=== PATIENT | female | born 1980 | race Hispanic/Latino ===

== ENCOUNTER 2017-04-14 08:50 | Outpatient (CLI) | payer MEDICAID ==
--- NOTE | 2017-04-14 14:29 | ULT ---
PELVIC ULTRASOUND: (TRANSABDOMINAL, TRANSVAGINAL, TOLEDO SCALE, COLOR FLOW, AND SPECTRAL DOPPLER) Date: 04/14/17 HISTORY: Pelvic pain. FINDINGS: The uterus measures 6.0 x 3.5 x 4.2 cm without focal mass or endometrial fluid. Endometrium measures 3.0 mm in thickness. The right ovary measures 2.1 x 1.8 x 1.1 cm. The left ovary measures 2.0 x 2.0 x 1.8 cm. No adnexal mass or free fluid in the cul-de-sac is identified. Flow is demonstrated to both ovaries. IMPRESSION: Unremarkable exam. POS: [facility]
== END 2017-04-14 08:51 | disposition home or self-care (01) ==
LOC: NAV ULT 08:50
PROVIDERS: ATTEND Nurse Practitioner Family
DX: R10.2 Pelvic and perineal pain (principal)
CPT/HCPCS: 76856

== ENCOUNTER 2024-01-07 11:36 | Outpatient (CLI) | payer OTHER | END 2024-01-07 11:37 | disposition home or self-care (01) | LOC: NAV RAD 11:36 | PROVIDERS: ATTEND Nurse Practitioner Family | DX: M79.601 Pain in right arm (principal) ==

== ENCOUNTER 2024-05-13 10:50 | Outpatient (CLI) | payer SELFPAY | END 2024-05-13 10:51 | disposition home or self-care (01) | LOC: NAV RAD 10:50 | PROVIDERS: ATTEND Nurse Practitioner Family | DX: M72.2 Plantar fascial fibromatosis (principal); M77.32 Calcaneal spur, left foot ==